=== PATIENT | male | born 1980 | race Caucasian/White ===

== ENCOUNTER 2020-01-19 20:07 | Emergency (ER) | payer BC ==
[2020-01-19] MEDS ORDERED: Aspirin 81 MG Tab.Chew PO ONE (20:18)
[2020-01-19] MEDS ORDERED: Sodium Chloride 0.9% 1,000 ML IV ONE (20:20)
--- NOTE | 2020-01-19 20:25 | EDM.PDOC ---
ED HPI GENERAL MEDICAL PROBLEM - General Chief Complaint: Chest Pain Stated Complaint: CHEST PAIN, MED REACTION Time Seen by Provider: 01/19/20 20:08 Source of Information: Reports: Patient History Limitations: Reports: No Limitations - History of Present Illness INITIAL COMMENTS - FREE TEXT/NARRATIVE: 39M no PMHx presents for chest pain, SOB, numbness/tingling sensation. Patient states that around noon today he took his first dose of Truvada for PrEP. Roughly 2-hrs later he began to experience chest tightness, difficulty taking a full breath in, numbness/tingling sensation throughout body, and "kidney pain". He denies rash, itchiness, N/V, abdominal pain, or throat closing sensation. chest Pain Score (Numeric/FACES): 4 - Related Data Allergies Allergy/AdvReac Type Severity Reaction Status Date / Time No Known Allergies Allergy Verified 01/19/20 20:16 Home Meds: Home Meds Emtricitabine/Tenofovir [Truvada 200 MG-300 MG] 200 - 300 mg PO DAILY 01/19/20 [History] Past Medical History - Past Health History Medical/Surgical History: Denies Medical/Surgical History - Infectious Disease History Infectious Disease History: Reports: Other (See Below) Other Infectious Disease History: pt states he was placed on Truvada for "previon of HIV because i am sexually active", pt states he was tested for HIH last week and result was negative. Social & Family History - Family History Family Medical History: Noncontributory - Tobacco Use Smoking Status *Q: Current Every Day Smoker Years of Tobacco use: 20 Packs/Tins Daily: 1 - Caffeine Use Caffeine Use: Reports: Coffee, Soda - Recreational Drug Use Recreational Drug Use: No ED ROS GENERAL - Review of Systems Review Of Systems: Comprehensive ROS is negative, except as noted in HPI. ED EXAM, GENERAL - Physical Exam Exam: See Below Exam Limited By: Altered Mental Status General Appearance: Alert, WD/WN, No Apparent Distress Throat/Mouth: Normal Inspection Head: Atraumatic, Normocephalic Neck: Normal Inspection, Supple Respiratory/Chest: No Respiratory Distress, Lungs Clear, Normal Breath Sounds, No Accessory Muscle Use, Chest Non-Tender Cardiovascular: Normal Peripheral Pulses, No Edema, Tachycardia Extremities: Other (no LE swelling/erythema/TTP; LE symmetric b/l ) Neurological: Alert Psychiatric: Normal Affect, Normal Mood Skin Exam: Warm, Dry EKG INTERPRETATION EKG Date: 01/19/20 Time: 20:24 Rhythm: NSR Rate (Beats/Min): 105 Reynolds: Normal P-Wave: Present QRS: Normal ST-T: Normal QT: Normal Course - Vital Signs Last Recorded V/S: Last Vital Signs Temp 96.9 F 01/19/20 20:12 Pulse 109 H 01/19/20 20:12 Resp 18 01/19/20 20:12 BP 91/48 L 01/19/20 20:12 Pulse Ox 97 01/19/20 20:12 - Orders/Labs/Meds Orders: Active Orders 24 hr Category Date Time Status EKG 12 Lead [EKG Documentation Completion] [RC] STAT Care 01/19/20 20:21 Active Labs: Laboratory Tests 01/19/20 01/19/20 01/19/20 Range/Units 20:15 20:15 20:15 WBC 11.39 H (4.0-11.0) K/uL RBC 5.23 (4.50-5.90) M/uL Hgb 16.6 (13.0-17.0) g/dL Hct 46.6 (38.0-50.0) % MCV 89.1 (80.0-98.0) fL MCH 31.7 (27.0-32.0) pg MCHC 35.6 (31.0-37.0) g/dL RDW Std Deviation 38.4 (28.0-62.0) fl RDW Coeff of Linda 12 (11.0-15.0) % Plt Count 226 (150-400) K/uL MPV 10.30 (7.40-12.00) fL Neut % (Auto) 82.9 H (48.0-80.0) % Lymph % (Auto) 10.7 L (16.0-40.0) % Hitchcock % (Auto) 5.2 (0.0-15.0) % Eos % (Auto) 1.1 (0.0-7.0) % Baso % (Auto) 0.1 (0.0-1.5) % Neut # (Auto) 9.5 H (1.4-5.7) K/uL Lymph # (Auto) 1.2 (0.6-2.4) K/uL Hitchcock # (Auto) 0.6 (0.0-0.8) K/uL Eos # (Auto) 0.1 (0.0-0.7) K/uL Baso # (Auto) 0.0 (0.0-0.1) K/uL D-Dimer, Quantitative 0.36 (0.0-0.50) mg/L FEU Sodium 138 (136-148) mmol/L Potassium 3.7 (3.5-5.1) mmol/L Chloride 101 (98-107) mmol/L Carbon Dioxide 27.4 (21.0-32.0) mmol/L BUN 11 (7.0-18.0) mg/dL Creatinine 1.2 (0.8-1.3) mg/dL Est Cr Clr Drug Dosing 79.96 mL/min Estimated GFR (MDRD) > 60.0 ml/min Glucose 108 H (74-106) mg/dL Calcium 8.6 (8.5-10.1) mg/dL Total Bilirubin 0.4 (0.2-1.0) mg/dL AST 19 (15-37) IU/L ALT 40 (14-63) IU/L Alkaline Phosphatase 71 (46-116) U/L Troponin I < 0.050 (0.000-0.056) ng/mL Total Protein 8.1 (6.4-8.2) g/dL Albumin 4.4 (3.4-5.0) g/dL Globulin 3.7 (2.6-4.0) g/dL Albumin/Globulin Ratio 1.2 (0.9-1.6) TSH 3rd Generation 2.67 (0.36-3.74) uIU/mL Meds: Medications Discontinued Medications Generic Name Dose Route Start Last Admin Trade Name Freq PRN Reason Stop Dose Admin Aspirin 324 mg 01/19/20 20:18 01/19/20 20:24 Aspirin PO 01/19/20 20:19 324 mg ONETIME ONE Administration Sodium Chloride 1,000 mls @ 999 mls/hr 01/19/20 20:20 01/19/20 20:24 Normal Saline IV 01/19/20 21:20 999 mls/hr .BOLUS ONE Administration - Re-Assessments/Exams Free Text/Narrative Re-Assessment/Exam: Will get labs including D-dimer to r/o emergent cardiac pathology; will get CXR. EKG is normal aside from mild tachycardia. Aspirin given. Free Text/Narrative Re-Assessment/Exam: 01/19/20 21:48 Labs and imaging unremarkable. Patient still with whole body parasthesia sensation but improving. Will d/c with PMD f/u, return precautions discussed at length ,recommend not taking Truvada again until discussed with primary. Departure - Departure Time of Disposition: 21:37 Disposition: Home, Self-Care 01 Condition: Good Clinical Impression: Adverse drug reaction Qualifiers: Encounter type: initial encounter Qualified Code(s): T50.905A - Adverse effect of unspecified drugs, medicaments and biological substances, initial encounter - Discharge Information *PRESCRIPTION DRUG MONITORING PROGRAM REVIEWED*: No *COPY OF PRESCRIPTION DRUG MONITORING REPORT IN PATIENT CESAR: No Instructions: Drug Allergy, [id number] Referrals: Toni Guzman MD [Primary Care Provider] - Forms: ED Department Discharge Additional Instructions: The following information is given to patients seen in the emergency department who are being discharged to home. This information is to outline your options for follow-up care. We provide all patients seen in our emergency department with a follow-up referral. The need for follow-up, as well as the timing and circumstances, are variable depending upon the specifics of your emergency department visit. If you don't have a primary care physician on staff, we will provide you with a referral. We always advise you to contact your personal physician following an emergency department visit to inform them of the circumstance of the visit and for follow-up with them and/or the need for any referrals to a consulting specialist. The emergency department will also refer you to a specialist when appropriate. This referral assures that you have the opportunity for follow-up care with a specialist. All of these measure are taken in an effort to provide you with optimal care, which includes your follow-up. Under all circumstances we always encourage you to contact your private physician who remains a resource for coordinating your care. When calling for follow-up care, please make the office aware that this follow-up is from your recent emergency room visit. If for any reason you are refused follow-up, please contact the [facility] Emergency Department at and asked to speak to the emergency department charge nurse. Sepsis Event Note (ED) - Evaluation Sepsis Screening Result: No Definite Risk - Focused Exam Vital Signs: Vital Signs Temp Pulse Resp BP Pulse Ox 01/19/20 20:12 96.9 F 109 H 18 91/48 L 97 - My Orders Last 24 Hours: My Active Orders 01/19/20 20:21 EKG 12 Lead [EKG Documentation Completion] [RC] STAT - Assessment/Plan Last 24 Hours: My Active Orders 01/19/20 20:21 EKG 12 Lead [EKG Documentation Completion] [RC] STAT
[2020-01-19 20:59] LABS: BLOOD UREA NITROGEN,BUN 11 mg/dL (7.0-18.0); CARBON DIOXIDE,CO2 27.4 mmol/L (21.0-32.0); CHLORIDE,CL 101 mmol/L (98-107); GLUCOSE RANDOM 108 mg/dL (74-106); POTASSIUM,K 3.7 mmol/L (3.5-5.1); SODIUM,NA 138 mmol/L (136-148)
--- NOTE | 2020-01-19 21:12 | CR ---
INDICATION: Chest pain. TECHNIQUE: Two view chest. FINDINGS: Lungs are clear. Heart and mediastinal contours appear normal with normal heart size and pulmonary vascularity. No signs of effusion or pneumothorax. Dictated by Lance Almazan MD @ Jan 19 2020 9:10PM Signed by Dr. Lance Almazan @ Jan 19 2020 9:10PM
== END 2020-01-19 21:50 | disposition home or self-care (01) ==
LOC: MW.ED 20:07
DX: R07.89 Other chest pain (principal); R06.02 Shortness of breath; T37.5X5A Adverse effect of antiviral drugs, initial encounter; F17.210 Nicotine dependence, cigarettes, uncomplicated; R00.0 Tachycardia, unspecified
CPT/HCPCS: 36415; 71046; 80053; 84443; 84484; 85025; 85379; 93005; 99285; A9270; J7030

== ENCOUNTER 2021-08-24 08:41 | Emergency (ER) | payer BC | END 2021-08-24 09:27 | disposition home or self-care (01) | LOC: MW.ED 08:41 | DX: M72.2 Plantar fascial fibromatosis (principal) | CPT/HCPCS: 99282; 99283 ==